=== PATIENT | female | born 1995 | race Two or more races ===

== ENCOUNTER 2024-05-16 16:58 | Emergency (ER) | payer MEDICAID ==
[~2024-05-16] VITALS: Ht 172.7 cm; Wt 102.0 kg
[~2024-05-16 16:58] MED LIST: PNV1TABL76 MT
[2024-05-16 17:01] VITALS: BP 102/63; PULSE 94; RESP 18; TEMP 98.2; O2SAT 98
[2024-05-16 17:52] LABS: BASOPHILS % 0.7 % (0.0-2.0); EOSINOPHILS % 1.3 % (0.0-5.0); HEMATOCRIT. 42.7 % (36.0-48.0); HEMOGLOBIN. 13.4 g/dL (12.0-16.0); LYMPHOCYTES % 19.3 % (20.0-50.0); MEAN CORPUSCULAR HEMOGLOBIN 25.6 pg (28.0-32.0); MEAN CORPUSCULAR HGB CONC 31.3 g/dL (31.0-37.0); MEAN PLATELET VOLUME 9.5 fl (7.4-10.4); MONOCYTES % 6.5 % (2.0-8.0); NEUTROPHILS % 72.2 % (40.0-76.0); PLATELET 317 x1000/uL (130-400); RED BLOOD CELL COUNT 5.21 mill/uL (4.2-5.4); RED CELL DISTRIBUTION WIDTH 15.1 % (11.6-14.6); WHITE BLOOD COUNT 7.2 x1000/uL (4.5-11.0)
[2024-05-16 17:58] LABS: CHLORIDE 107 mEq/L (98-107); POTASSIUM 4.4 mEq/L (3.5-5.1); SODIUM 140 mEq/L (136-145)
[2024-05-16 17:59] LABS: CALCIUM 8.8 mg/dL (8.7-10.4); CARBON DIOXIDE 26 mEq/L (21-32)
[2024-05-16 18:01] LABS: HCG SCREEN NEGATIVE
[2024-05-16 18:04] LABS: GLUCOSE 113 mg/dL (70-105); UREA NITROGEN BLOOD 6 mg/dL (9-23)
[2024-05-16 18:06] LABS: ALANINE AMINOTRANSFERASE 15 IU/L (10-49); ALBUMIN 3.9 g/dL (3.2-4.8); ASPARTATE AMINOTRANSFERASE 15 IU/L (<34); BILIRUBIN TOTAL 0.3 mg/dL (0.1-1.0); PROTEIN TOTAL 6.6 g/dL (6.0-8.3)
[2024-05-16 18:20] LABS: BILIRUBIN DIRECT < 0.1 mg/dL (<=3.0)
== END 2024-05-16 23:30 | disposition left against medical advice (07) ==
LOC: ER 16:58
DX: R53.1 Weakness (principal)
CPT/HCPCS: 36415; 80048; 80076; 84703; 85025; 99283